=== PATIENT | male | born 1995 | race Caucasian/White ===

== ENCOUNTER 2017-10-25 12:10 | Emergency (ER) | payer BC ==
[~2017-10-25] VITALS: Ht 188 cm; Wt 78.8 kg
[2017-10-25 12:13] VITALS: TEMP 36.9; Ht 188 cm; Wt 78.8 kg
--- NOTE | 2017-10-25 13:11 | EMERGENCY ROOM VISIT NOTE ---
ED Visit Note First contact with patient: 12:29 CHIEF COMPLAINT: Ankle pain HISTORY OF PRESENT ILLNESS: This 21-year-old male patient presents to the emergency department by private vehicle after sustaining an injury to the right ankle yesterday while hiking. Patient states that he jumped off of a rock and landed wrong on the ankle, he is unsure if he twisted or not. He has been having pain along the lateral aspect of the ankle, but denies any swelling or bruising. The patient denies any pain of the foot. The patient rates the pain as throbbing and 9/10. The patient is able to bear weight on the foot, but states he has a limp. Constant pain, worse with movement, weight bearing, and the dependent position. No knee pain, the patient is able to move their toes. No numbness or weakness of the foot, no laceration. The patient has not had a previous fracture to this ankle. The patient has taken no medications for the pain. He has been applying ice with some improvement. The patient denies any other injury. REVIEW OF SYSTEMS: A 6 system review of systems was completed with positives and pertinent negatives listed in the HPI. ALLERGIES: No known allergies MEDICATIONS: No medications PMH: No significant past medical or surgical history. SOCIAL HISTORY: Lives at home. He is a [employer] student. He denies tobacco use. PHYSICAL EXAM: Vital Signs: Reviewed Nurse's notes, vital signs stable. GENERAL : Pleasant and cooperative, no acute distress, but appears in pain, well- developed, well-nourished. MENTAL STATUS: Alert, oriented to person place and time, and cooperative. MUSCULOSKELETAL: The right ankle is not swollen, but is tender to palpation over the lateral malleolus. The skin is intact and there is no ligamentous instability. There is no fifth metatarsal tenderness. There is no tenderness over the rest of the foot. There is no calf or tibia/fibular tenderness. There is no visual deformity. The foot and toes are warm and well- perfused. Dorsalis pedis pulse 2+. Sensation to pain and light touch is intact. Capillary refill less than 2 seconds. EMERGENCY DEPARTMENT COURSE: I examined the patient. Differential diagnosis includes ankle sprain/strain, contusion, fracture, dislocation, among others. X -rays of the right ankle were reviewed by myself and read by radiology and reveal no acute fracture. A gel ankle splint was applied to the ankle under my direction and the position was satisfactory. Neurovascular status was rechecked and intact. The patient was instructed on the use of crutches. Patient was educated regarding continued management, follow-up, and return precautions should his symptoms worsen, he verbalized understanding. The patient was discharged home in good condition. Current/Historical Medications No Active Prescriptions or Reported Meds Allergies Coded Allergies: No Known Allergies (Unverified , 10/25/17) Vital Signs Date Time Temp Pulse Resp B/P (MAP) Pulse Ox O2 Delivery O2 Flow Rate FiO2 10/25/17 14:06 75 17 135/73 98 10/25/17 13:29 75 17 135/73 98 Room Air 10/25/17 12:13 36.9 102 18 135/75 99 Room Air Departure Information Impression Primary Impression: Right ankle sprain Dispostion Home / Self-Care Condition GOOD Prescriptions No Active Prescriptions or Reported Meds Referrals No Doctor, Assigned (PCP) Ezio Fry M.D. Patient Instructions ED Sprain Ankle, [facility] Additional Instructions DISCHARGE INSTRUCTIONS: You have been evaluated and treated in the emergency department for right ankle sprain. Apply ice to the ankle and keep elevated for the next 2 days. Use the crutches to stay off of the ankle. Wear the splint to support the ankle. Do not get splint wet. You may take ibuprofen or Tylenol as needed for pain. Take as directed. Follow-up with your own primary care provider, or see the orthopedic surgeon there is no improvement in your ankle pain in 4-5 days. Problem Qualifiers Primary Impression: Right ankle sprain Encounter type: initial encounter Involved ligament of ankle: unspecified ligament Qualified Codes: S93.401A - Sprain of unspecified ligament of right ankle, initial encounter
--- NOTE | 2017-10-25 13:27 | DIAGNOSTIC IMAGING REPORT ---
R ANKLE MIN 3 VIEWS ROUTINE CLINICAL HISTORY: 21 years-old Male presenting with EVAL FX. TECHNIQUE: Frontal, mortise, and lateral views of the right ankle were obtained. COMPARISON: None. FINDINGS: Ankle mortise intact. No acute fracture or malalignment. No advanced degenerative change. No radiographic soft tissue abnormality. IMPRESSION: No acute osseous injury. Electronically signed by: Ezio Smith M.D. 10/25/2017 1:25 PM Dictated Date/Time: 10/25/2017 1:25 PM
[2017-10-25 14:06] VITALS: BP 135/73; PULSE 75; O2SAT 98
== END 2017-10-25 14:06 | disposition home or self-care (01) ==
LOC: C.EDB 12:14 → C.EDD 14:06
DX: S93.401A Sprain of unspecified ligament of right ankle, initial encounter (principal); X50.9XXA Other and unspecified overexertion or strenuous movements or postures, initial encounter